=== PATIENT | female | born 1945 | race Caucasian/White ===

== ENCOUNTER 2019-04-13 05:15 | Observation (INO) ==
[2019-04-13] MEDS ORDERED: Naloxone 0.4 MG/ML INJ IVP PRN (10:56)
[2019-04-13] MEDS ORDERED: Ringers Solution, Lactated 1,000 ML IVC SCH (18:00)
[2019-04-14 05:52] LABS: Basophils # 0.1 K/mcL (0.0-0.2); Basophils % 0.9 %; Eosinophils # 0.2 K/mcL (0.0-0.6); Eosinophils % 3.2 %; Immature Granulocytes % 0.2 % (0-4); Lymphocytes # 1.5 K/mcL (0.6-4.6); Lymphocytes % 23.4 %; Mean Corpuscular HGB Conc 32.6 g/dL (31.6-35.5); Mean Corpuscular Hemoglobin 30.7 pg (28.0-33.3); Mean Corpuscular Volume 94.3 fL (83.0-100.0); Mean Platelet Volume 9.5 fL (9.4-12.4); Monocytes # 0.5 K/mcL (0.0-1.3); Monocytes % 7.2 %; Neutrophils # 4.3 K/mcL (1.6-8.9); Platelet Count 335 K/mcL (140-400); Red Blood Count 4.88 M/mcL (3.82-4.97); Red Cell Distribution Width 14.1 % (11.5-14.5); Segmented Neutrophils % 65.1 %; White Blood Count 6.5 K/mcL (4.3-11.1)
[2019-04-14 06:12] LABS: BUN/Creatinine Ratio 27 (6-26); Blood Urea Nitrogen 20 mg/dL (8-23); Calcium 9.3 mg/dL (8.6-10.3); Carbon Dioxide 23 mEq/L (23-29); Chloride 106 mEq/L (98-107); Glucose 105 mg/dL (70-105); Osmolality,Calculated 293 (280-300); Potassium 4.2 mEq/L (3.5-5.1); Sodium 140 mEq/L (136-145); eGFR For African Americans > 60 (> 60); eGFR For Non-African Americans > 60 (> 60)
[2019-04-14 06:14] LABS: Chol/HDL Ratio 2.5 (0-4.9)
[2019-04-14 10:03] LABS: Estimated Average Glucose 105 mg/dl
[2019-04-14 12:19] LABS: Folate 8.4 ng/mL (3.0-16.0)
[2019-04-14] MEDS ORDERED: Cyanocobalamin (B-12) 1,000 MCG/ML VIAL IM ONE (14:26)
[2019-04-14] MEDS: Cyanocobalamin (B-12) 1,000 MCG/ML VIAL IM SCH (17:40)
[2019-04-15] MEDS: Cyanocobalamin (B-12) 1,000 MCG/ML VIAL IM SCH (11:38)
[2019-04-15 14:16] VITALS: BP 140/86
== END 2019-04-15 14:46 | disposition home or self-care (01) ==
LOC: CDU → SUATTDRO 09:17 → 3BNU 18:07
PROVIDERS: ADMIT Family Medicine; ATTEND Internal Medicine